=== PATIENT | male | born 1990 | race Two or more races ===

== ENCOUNTER 2017-09-20 14:39 | Emergency (ER) | payer SELFPAY ==
[~2017-09-20] VITALS: Ht 165.1 cm; Wt 67.0 kg
[2017-09-20 14:45] VITALS: BP 129/73
[2017-09-20] MEDS ORDERED: LIDOCAINE HCL 1% 20ML VIAL (Pyxis) INJ MC ONE (16:00)
[2017-09-20] MEDS ORDERED: BACITRACIN ZINC OINT UDPKT TOP ONE (16:00)
== END 2017-09-20 18:45 | disposition home or self-care (01) ==
LOC: ER 14:39
DX: S91.311A Laceration without foreign body, right foot, initial encounter (principal); W45.8XXA Other foreign body or object entering through skin, initial encounter; Y93.89 Activity, other specified; Y92.89 Other specified places as the place of occurrence of the external cause; R03.0 Elevated blood-pressure reading, without diagnosis of hypertension
CPT/HCPCS: 12001; 73630; 99283; J3490; Z7610